=== PATIENT | female | born 1985 | race Caucasian/White ===

== ENCOUNTER 2017-08-23 14:20 | Emergency (ER) | END 2017-08-23 17:12 | disposition home or self-care (01) ==

== ENCOUNTER 2018-05-17 17:20 | Emergency (ER) | END 2018-05-17 21:04 | disposition home or self-care (01) ==

== ENCOUNTER 2018-08-16 07:23 | Emergency (ER) | payer MEDICAID ==
[~2018-08-16] VITALS: Ht 160 cm; Wt 65.6 kg
[~2018-08-16 07:23] MED LIST: CEPH-443 PO; IBUP-1542 PO; OSLT75C PO; PROM5SYR2 PO; SULF1TAB31 PO
[2018-08-16 07:24] VITALS: BP 140/86; PULSE 78; RESP 18; Ht 160 cm; Wt 65.6 kg
[2018-08-16] MEDS ORDERED: ONDANSETRON (ODT) 4 MG TAB ODT STA (07:37)
[2018-08-16] MEDS ORDERED: ACETAMINOPHEN 500 MG TAB PO STA (07:37)
[2018-08-16] MEDS ORDERED: ONDA4TAB14 PO (07:38)
[2018-08-16] MEDS ORDERED: DICY10CA40 PO (07:39)
--- NOTE | 2018-08-16 07:52 | ERD ---
ER Documentation Chief Complaint Chief Complaint DIARRHEA X 4 DAYS WITH NAUSEA AND CRAMPING HPI Patient is a 32-year-old female presents to the ER for concerns of nausea, vomiting and diarrhea. Patient states her last episode of vomiting was yesterday. Patient continues to feel nauseous. Patient is drinking Clare this morning without any additional episodes of vomiting. Patient states she has diffuse cramping throughout her abdomen. Patient states the pain comes and goes. Patient denies fevers or chills. Patient continued to report loose stools, nonbloody. Patient denies any recent travel. No sick contacts. Patient denies any chest pain, shortness of breath, neck pain, neck stiffness. Patient denies any recent antibiotic use. Last menstrual period 3 weeks ago. Patient denies . ROS All systems reviewed and are negative except as per history of present illness. Medications Home Meds Active Scripts Dicyclomine HCl (Dicyclomine HCl) 10 Mg Capsule, 10 MG PO TID PRN for ABDOMINAL CRAMPING, #20 CAP Prov:FREDIS TATUM PA-C 08/16/18 Ondansetron (Ondansetron Odt) 4 Mg Tab.rapdis, 4 MG PO Q6H PRN for NAUSEA AND/OR VOMITING, #10 TAB Prov:FREDIS TATUM PA-C 08/16/18 Ibuprofen* (Motrin*) 600 Mg Tab, 600 MG PO Q6, #30 TAB Prov:ELICIA HERNANDEZ 05/17/18 Sulfamethoxazole/Trimethoprim* (Bactrim Ds* Tablet) 1 Each Tablet, 1 TAB PO BID for 7 Days, TAB Prov:ELICIA HERNANDEZ 05/17/18 Cephalexin* (Keflex*) 500 Mg Capsule, 500 MG PO BID for 7 Days, CAP Prov:ELICIA HERNANDEZ 05/17/18 Promethazine HCl/Codeine (Prometh-Codein 6.25-10 mg/5 ml) 5 Ml Syrup, 5 ML PO TID PRN for COUGH, #120 ML Prov:IGOR LÓPEZ MD 08/23/17 Ibuprofen* (Ibuprofen*) 600 Mg Tablet, 600 MG PO Q8 for 5 Days, #15 TAB Prov:IGOR LÓPEZ MD 08/23/17 Oseltamivir Phosphate* (Tamiflu*) 75 Mg Capsule, 75 MG PO BID for 5 Days, CAP Prov:IGOR LÓPEZ MD 08/23/17 Allergies Allergies: Coded Allergies: No Known Allergy (Unverified , 08/16/18) PMhx/Soc History of Surgery: Yes ( X2) Anesthesia Reaction: No Hx Neurological Disorder: No Hx Respiratory Disorders: No Hx Cardiac Disorders: No Hx Psychiatric Problems: No Hx Miscellaneous Medical Probl: Yes (gestational diabetes) Hx Alcohol Use: No Hx Substance Use: No Hx Tobacco Use: No Smoking Status: Never smoker FmHx Family History: No diabetes Physical Exam Vitals Vital Signs Date Temp Pulse Resp B/P (MAP) Pulse Ox O2 O2 Flow FiO2 Time Delivery Rate 08/16/18 98.0 78 18 140/86 98 07:24 (104) Physical Exam GENERAL: Well-developed, well-nourished female. Appears in no acute distress. HEAD: Normocephalic, atraumatic. EYES: Pupils are equally reactive bilaterally. EOMs grossly intact. No conjunctival erythema. ENT: Moist mucous membranes. No uvula deviation. No kissing tonsils. NECK: Supple. No meningismus. Normal range of motion of the neck. LUNG: Clear to auscultation bilaterally. No rhonchi, wheezing, rales or coarse breath sounds. HEART: Regular rate and rhythm. No murmurs, rubs or gallops. ABDOMEN: Soft, nondistended. Nontender to palpation throughout the abdomen.. Positive bowel sounds in all four quadrants. No rebound tenderness, no guarding. (-) McBurney's point tenderness. No CVA tenderness. EXTREMITIES: Equal pulses bilaterally. No peripheral clubbing, cyanosis or edema. No unilateral leg swelling. NEUROLOGIC: Alert and oriented. Moving all four extremities without any difficulty. Normal speech. Steady gait. SKIN: Normal color. Warm and dry. No rashes or lesions. Results 24 hrs Current Medications Medications Dose Sig/David Start Time Status Last (Trade) Ordered Route PRN Stop Time Admin Dose Reason Admin Ondansetron 4 mg ONCE STAT 08/16/18 DC 08/16/18 HCl (Zofran ODT 07:37 07:42 Odt) 08/16/18 07:38 1,000 mg ONCE STAT 08/16/18 DC 08/16/18 Acetaminophen PO 07:37 07:42 (Tylenol 08/16/18 Tab) 07:38 Procedures/MDM MEDICAL DECISION MAKING: This is a 32-year-old female presents ER for concerns of nausea and diarrhea. Patient did have vomiting yesterday however that has not resolved.. Vital signs were reviewed. Patient is afebrile. Abdominal exam was benign. Patient had no peritoneal signs. Patient was able to tolerate fluids this morning. Low suspicion for patient requiring IV rehydration therapy at this time. Patient was given Zofran here in the ER for her nausea. Patient was also given Tylenol for her pain. Patient was advised on BRAT diet. Patient was advised to follow-up with her primary care physician in the next 2 days if her diarrhea persists she may need stool studies on outpatient basis. At this time, the patient presentation most consistent with viral syndrome. Differential diagnosis included was not limited to acute coronary syndrome, AAA, mesenteric ischemia, lower lobe pneumonia, DKA, bowel perforation, cholecystitis, choledocholithiasis, ascending cholangitis, hepatic abscess, pancreatitis, PUD, gastritis, GERD, splenic rupture, diverticulitis, UTI, pyelonephritis, nephrolithiasis, appendicitis, constipation, , ectopic , PID, ovarian torsion or tubo-ovarian abscess. Patient was nontoxic, non-opening prior to discharge. PRESCRIPTIONS: Bentyl, Zofran DISCHARGE: At this time, patient is stable for discharge and outpatient management. I have instructed the patient to follow-up with his/her primary care physician in 1-2 days. I have instructed the patient to promptly return to the ER at any time for any new or worsening symptoms including increased pain, nausea, vomiting, diarrhea, fever, weakness or LOC. The patient and/or family expressed understanding of and agreement with this plan. All questions were answered. Home care instructions were provided. Disclaimer: Inadvertent spelling and grammatical errors are likely due to EHR/dictation software use and do not reflect on the overall quality of patient care. Also, please note that the electronic time recorded on this note does not necessarily reflect the actual time of the patient encounter. Departure Diagnosis: Primary Impression: Nausea vomiting and diarrhea Additional Impression: Abdominal pain Abdominal location: generalized Qualified Codes: R10.84 - Generalized abdominal pain Condition: Stable Patient Instructions: Abdominal Pain, Vomiting And Diarrhea, Nonspecific (Adult) Additional Instructions: Call your primary care doctor TOMORROW for an appointment during the next 1-2 days.See the doctor sooner or return here if your condition worsens before your appointment time. FREDIS TATUM PA-C Aug 16, 2018 07:51
== END 2018-08-16 07:46 | disposition home or self-care (01) ==
LOC: FTE 07:23
DX: R11.2 Nausea with vomiting, unspecified (principal); R10.84 Generalized abdominal pain
CPT/HCPCS: Z7502; Z7610; 99283

== ENCOUNTER 2018-08-22 11:45 | Emergency (ER) | payer MEDICAID ==
[~2018-08-22] VITALS: Ht 165.1 cm; Wt 64.0 kg
[~2018-08-22 11:45] MED LIST changes: +DICY10CA40 PO; +ONDA4TAB14 PO
[2018-08-22 11:49] VITALS: Ht 165.1 cm; Wt 64.0 kg
[2018-08-22] MEDS ORDERED: LOPE2CAP PO (12:28)
--- NOTE | 2018-08-22 12:36 | ERD ---
ER Documentation Chief Complaint Chief Complaint Complains of abdominal ruelas and diarrhea x 3 days HPI 32-year-old female patient patient's history of diarrhea. States diarrhea is nonbloody. Denies any abdominal pain or . Denies vomiting, fevers. Denies past medical history. Denies allergies. Denies social. Denies medications. ROS All systems reviewed and are negative except as per history of present illness. Medications Home Meds Active Scripts Loperamide Hcl* (Imodium*) 2 Mg Capsule, 2 MG PO .AFTER EA LOOSE BM PRN for DIARRHEA, #20 TAB 2 tabs PO x 1 then 1 tab PO afer each loose BM. Max 8 tabs/day Prov:AUTUMN HIDALGO 08/22/18 Dicyclomine HCl (Dicyclomine HCl) 10 Mg Capsule, 10 MG PO TID PRN for ABDOMINAL CRAMPING, #20 CAP Prov:FREDIS TATUM PA-C 08/16/18 Ondansetron (Ondansetron Odt) 4 Mg Tab.rapdis, 4 MG PO Q6H PRN for NAUSEA AND/OR VOMITING, #10 TAB Prov:FREDIS TATUM PA-C 08/16/18 Ibuprofen* (Motrin*) 600 Mg Tab, 600 MG PO Q6, #30 TAB Prov:ELICIA HERNANDEZ 05/17/18 Sulfamethoxazole/Trimethoprim* (Bactrim Ds* Tablet) 1 Each Tablet, 1 TAB PO BID for 7 Days, TAB Prov:ELICIA HERNANDEZ 05/17/18 Cephalexin* (Keflex*) 500 Mg Capsule, 500 MG PO BID for 7 Days, CAP Prov:ELICIA HERNANDEZ 05/17/18 Promethazine HCl/Codeine (Prometh-Codein 6.25-10 mg/5 ml) 5 Ml Syrup, 5 ML PO TID PRN for COUGH, #120 ML Prov:IGOR LÓPEZ MD 08/23/17 Ibuprofen* (Ibuprofen*) 600 Mg Tablet, 600 MG PO Q8 for 5 Days, #15 TAB Prov:IGOR LÓPEZ MD 08/23/17 Oseltamivir Phosphate* (Tamiflu*) 75 Mg Capsule, 75 MG PO BID for 5 Days, CAP Prov:IGOR LÓPEZ MD 08/23/17 Allergies Allergies: Coded Allergies: No Known Allergy (Unverified , 08/22/18) PMhx/Soc History of Surgery: Yes ( X2) Anesthesia Reaction: No Hx Neurological Disorder: No Hx Respiratory Disorders: No Hx Cardiac Disorders: No Hx Psychiatric Problems: No Hx Miscellaneous Medical Probl: Yes (gestational diabetes) Hx Alcohol Use: Yes (social) Hx Substance Use: No Hx Tobacco Use: No Smoking Status: Never smoker FmHx Family History: No diabetes, No coronary disease, No other Physical Exam Vitals Vital Signs Date Temp Pulse Resp B/P (MAP) Pulse Ox O2 O2 Flow FiO2 Time Delivery Rate 08/22/18 98.0 96 20 119/80 98 11:49 (93) Physical Exam General: Well developed, well nourished. No acute distress. Heart: RR w/o murmur, rubs, or gallops. Lungs: Clear to auscultation bilaterally w/o wheezes, crackles, rhonchi. Symmetric rise and fall. Equal breath sounds. Abdomen: Soft, nontender, with no rigidity or guarding noted. No masses, lesions, or ecchymoses. Normoactive bowel sounds. No McBurney's point tender ness. Patient ambulatory. No tenderness to palpation in splenic area or splenomegaly. No CVA tenderness. Neg murphys. Neg psoas. Psych: Normal mood and affect. Results 24 hrs Laboratory Tests Test 08/22/18 12:20 POC Beta HCG, Qualitative NEGATIVE Procedures/MDM ER course: HCG neg MDM: 32-year-old female patient patient's history of diarrhea. States diarrhea is nonbloody. Denies any abdominal pain or . Denies vomiting, fevers. Low suspicion for invasive diarrhea based on patient history and physical exam. Have low suspicion for appendicitis. Patient given Rx for immodium and work note to return in 2 days. Patient discharged with strict ER precautions. Patient advised to follow up with PMD. All questions answered at discharge. Departure Diagnosis: Primary Impression: Diarrhea Diarrhea type: functional diarrhea Qualified Codes: K59.1 - Functional diarrhea Condition: Stable Patient Instructions: Treating Diarrhea Referrals: COMM[facility]ITY CLINICS YOU HAVE RECEIVED A MEDICAL SCREENING EXAM AND THE RESULTS INDICATE THAT YOU DO NOT HAVE A CONDITION THAT REQUIRES URGENT TREATMENT IN THE EMERGENCY DEPARTMENT. FURTHER EVALUATION AND TREATMENT OF YOUR CONDITION CAN WAIT UNTIL YOU ARE SEEN IN YOUR DOCTORS OFFICE WITHIN THE NEXT 1-2 DAYS. IT IS YOUR RESPONSIBILITY TO M ABRAHAM AN APPOINTMENT FOR FOLOW-UP CARE. IF YOU HAVE A PRIMARY DOCTOR --you should call your primary doctor and schedule an appointment IF YOU DO NOT HAVE A PRIMARY DOCTOR YOU CAN CALL OUR PHYSICIAN REFERRAL HOTLINE AT IF YOU CAN NOT AFFORD TO SEE A PHYSICIAN YOU CAN CHOSE FROM THE FOLLOWING [facility] CLINICS [facility] [address] [facility] [address] [facility] [address] [facility] [address] [facility] [address] [facility]. [facility] [address] Additional Instructions: FOLLOW UP WITH YOUR PRIMARY CARE PHYSICIAN TOMORROW.Return to this facility if you are not improving as expected. AUTUMN HIDALGO Aug 22, 2018 12:36
[2018-08-22 13:04] VITALS: BP 112/73; PULSE 87; RESP 20
== END 2018-08-22 13:08 | disposition home or self-care (01) ==
LOC: FTE 11:45
DX: K59.1 Functional diarrhea (principal)
CPT/HCPCS: 81025; Z7502; 99282

== ENCOUNTER 2018-10-30 09:10 | Emergency (ER) | payer MEDICAID ==
[~2018-10-30] VITALS: Ht 154.9 cm; Wt 63.7 kg
[~2018-10-30 09:10] MED LIST changes: +LOPE2CAP PO; +OSEL75CA23 PO; -OSLT75C PO
[2018-10-30 09:16] VITALS: BP 125/90; PULSE 84; RESP 18; Ht 154.9 cm; Wt 63.7 kg
[2018-10-30] MEDS ORDERED: CEPH-443 PO (10:37)
[2018-10-30] MEDS ORDERED: SULF1TAB31 PO (10:37)
--- NOTE | 2018-10-30 10:44 | ERD ---
ER Documentation Chief Complaint Chief Complaint diarrhea x 3 days and blisters to genital area HPI 32-year-old female presents for genital area rash and diarrhea times 3 days. Patient has been taking Imodium for diarrhea and is improving if this is not really concerned about the diarrhea at this point. She has been concerned about the genital rash. She states that she has painful bumps. She states that she had prior similar symptoms which was diagnosed with an abscess. She was given antibiotics in the past with relief of symptoms. She denied denies abdominal p ain, denies fevers or chills. ROS All systems reviewed and are negative except as per history of present illness. Medications Home Meds Active Scripts Sulfamethoxazole/Trimethoprim* (Bactrim Ds* Tablet) 1 Each Tablet, 1 TAB PO BID for skin infection for 7 Days, #14 TAB Prov:ALYSSA LOPEZ DO 10/30/18 Cephalexin* (Keflex*) 500 Mg Capsule, 500 MG PO TID for skin infection for 7 Days, #21 CAP Prov:ALYSSA LOPEZ DO 10/30/18 Loperamide Hcl* (Imodium*) 2 Mg Capsule, 2 MG PO .AFTER EA LOOSE BM PRN for DIARRHEA, #20 TAB 2 tabs PO x 1 then 1 tab PO afer each loose BM. Max 8 tabs/day Prov:AUTUMN HIDALGO 08/22/18 Dicyclomine HCl (Dicyclomine HCl) 10 Mg Capsule, 10 MG PO TID PRN for ABDOMINAL CRAMPING, #20 CAP Prov:FREDIS TATUM PA-C 08/16/18 Ondansetron (Ondansetron Odt) 4 Mg Tab.rapdis, 4 MG PO Q6H PRN for NAUSEA AND/OR VOMITING, #10 TAB Prov:FREDIS TATUM PA-C 08/16/18 Ibuprofen* (Motrin*) 600 Mg Tab, 600 MG PO Q6, #30 TAB Prov:ELICIA HERNANDEZ 05/17/18 Sulfamethoxazole/Trimethoprim* (Bactrim Ds* Tablet) 1 Each Tablet, 1 TAB PO BID for 7 Days, TAB Prov:ELICIA HERNANDEZ 05/17/18 Cephalexin* (Keflex*) 500 Mg Capsule, 500 MG PO BID for 7 Days, CAP Prov:ELICIA HERNANDEZ 05/17/18 Promethazine HCl/Codeine (Prometh-Codein 6.25-10 mg/5 ml) 5 Ml Syrup, 5 ML PO TID PRN for COUGH, #120 ML Prov:IGOR LÓPEZ MD 08/23/17 Ibuprofen* (Ibuprofen*) 600 Mg Tablet, 600 MG PO Q8 for 5 Days, #15 TAB Prov:IGOR LÓPEZ MD 08/23/17 Oseltamivir Phosphate* (Tamiflu*) 75 Mg Capsule, 75 MG PO BID for 5 Days, CAP Prov:IGOR LÓPEZ MD 08/23/17 Allergies Allergies: Coded Allergies: No Known Allergy (Unverified , 08/22/18) PMhx/Soc History of Surgery: Yes ( X 3) Anesthesia Reaction: No Hx Neurological Disorder: No Hx Respiratory Disorders: No Hx Cardiac Disorders: No Hx Psychiatric Problems: No Hx Miscellaneous Medical Probl: Yes (gestational diabetes) Hx Alcohol Use: Yes (social) Hx Substance Use: No Hx Tobacco Use: No Smoking Status: Never smoker Physical Exam Vitals Vital Signs Date Temp Pulse Resp B/P (MAP) Pulse Ox O2 O2 Flow FiO2 Time Delivery Rate 10/30/18 97.4 84 18 125/90 100 09:16 (102) Physical Exam Const: No acute distress Resp: Clear to auscultation bilaterally Cardio: Regular rate and rhythm, no murmurs Abd: Soft, non tender, non distended. Normal bowel sounds Skin: Vaginal exam with myself at bedside, patient has 3 small areas of lesion, elevated, erythematous with increased warmth Back: No midline or flank tenderness Ext: No cyanosis, or edema Neur: Awake and alert Psych: Normal Mood and Affect Procedures/MDM Medical Decision Making: Differential diagnosis includes but not limited to HSV, cellulitis, abscess Patient appeared well on physical exam. Exam done with the staff at bedside shows areas of infection bacterial co nsistent with an abscess. The abscess is too small to be drained. Patient be given a trial of antibiotics which has helped in the past Prescription(s): Patient given prescription for Bactrim and Keflex. Patient advised to follow up with PCP in 1-2 days. Patient advised to return to ED for new or worsening symptoms. Patient stable on discharge from the ED. Disclaimer: Inadvertent spelling and grammatical errors are likely due to EHR/dictation software use and do not reflect on the overall quality of patient care. Also, please note that the electronic time recorded on this note does not necessarily reflect the actual time of the patient encounter. Departure Diagnosis: Primary Impression: Abscess Condition: Fair Patient Instructions: Folliculitis Referrals: [facility] YOU HAVE RECEIVED A MEDICAL SCREENING EXAM AND THE RESULTS INDICATE THAT YOU DO NOT HAVE A CONDITION THAT REQUIRES URGENT TREATMENT IN THE EMERGENCY DEPARTMENT. FURTHER EVALUATION AND TREATMENT OF YOUR CONDITION CAN WAIT UNTIL YOU ARE SEEN IN YOUR DOCTORS OFFICE WITHIN THE NEXT 1-2 DAYS. IT IS YOUR RESPONSIBILITY TO MAKE AN APPOINTMENT FOR FOLOW-UP CARE. IF YOU HAVE A PRIMARY DOCTOR --you should call your primary doctor and schedule an appointment IF YOU DO NOT HAVE A PRIMARY DOCTOR YOU CAN CALL OUR PHYSICIAN REFERRAL HOTLINE AT IF YOU CAN NOT AFFORD TO SEE A PHYSICIAN YOU CAN CHOSE FROM THE FOLLOWING [facility] CLINICS [facility] [address] [facility] [address] [facility] [address] [facility] [address] [facility] [address] [facility] [facility]. [address] Additional Instructions: Llame al doctor MAANA y harvey anthony KIARA PARA DENTRO DE 1-2 MUNOZ.Dgale a la secretaria que nosotros le instruimos hacer esta kiara.Avise o llame si botello condicin se empeora antes de la kiara. Regresa aqui si peor o no mejor. ALYSSA LOPEZ DO Oct 30, 2018 10:44
== END 2018-10-30 10:53 | disposition home or self-care (01) ==
LOC: FTE 09:10
DX: N76.0 Acute vaginitis (principal)
CPT/HCPCS: 99283

== ENCOUNTER 2018-12-19 04:25 | Emergency (ER) | payer MEDICAID ==
[~2018-12-19] VITALS: Ht 154.9 cm; Wt 65.6 kg
[2018-12-19 04:48] VITALS: Ht 154.9 cm; Wt 65.6 kg
[2018-12-19] MEDS ORDERED: ACETAMINOPHEN 500 MG TAB PO STA (07:49)
[2018-12-19] MEDS ORDERED: LIDOCAINE 1% (MDV) 20 ML INJ SC ONE (08:00)
[2018-12-19] MEDS ORDERED: CEFTRIAXONE 1 GM INJ IM ONE (08:00)
[2018-12-19] MEDS ORDERED: HYDROCODONE/APAP (10/325) TAB PO ONE (10:30)
[2018-12-19] MEDS ORDERED: ONDANSETRON (ODT) 4 MG TAB ODT STA (10:31)
[2018-12-19] MEDS ORDERED: TRAM50TA2 PO (10:33)
[2018-12-19] MEDS ORDERED: NAPR-985 PO (10:33)
[2018-12-19] MEDS ORDERED: SULF1TAB31 PO (10:33)
[2018-12-19] MEDS ORDERED: CEPH500C PO (10:33)
[2018-12-19] MEDS ORDERED: ACET500C5 PO (10:33)
[2018-12-19 10:51] VITALS: BP 111/82; PULSE 87; RESP 17
[2018-12-19] MEDS ORDERED: TRIMETHOPRIM/SULFAMETHOX (DS) TAB PO ONE (11:00)
--- NOTE | 2018-12-19 11:34 | ERD ---
ER Documentation Chief Complaint Chief Complaint partially/spontaneously draining sore abscess on RUQ ab area;Tylenol@1900 HPI History of Present Illness: 32-year-old female with no past medical history coming in today with complaint of abscess on right upper quadrant. Significant other is present with patient during ER visit. Reporting of being present for 1 week, with intermittent mild purulent drainage. Patient is reporting increase in size over the past 7 days. Associated symptoms include fatigue, chills. At home pharmacological/nonpharmacological treatment for symptoms: Acetaminophen at 1900 last night Denies social concerns; Denies recent foreign travel ROS All systems reviewed and are negative except as per history of present illness. Medications Home Meds Active Scripts Tramadol HCl (Tramadol HCl) 50 Mg Tablet, 50 MG PO Q8, #6 TAB Prov:CHRISS COLLAZO V HYBRID CORN BREEDER 12/19/18 Naproxen* (Naprosyn*) 500 Mg Tablet, 500 MG PO BID PRN for PAIN AND/OR INFLAMMATION, #30 TAB Prov:CHRISS COLLAZO V HYBRID CORN BREEDER 12/19/18 Acetaminophen* (Tylophen*) 500 Mg Capsule, 2 CAP PO Q8H PRN for PAIN AND OR ELEVATED TEMP, #20 CAP Prov:CHRISS COLLAZO V HYBRID CORN BREEDER 12/19/18 Sulfamethoxazole/Trimethoprim* (Bactrim Ds* Tablet) 1 Each Tablet, 1 TAB PO BID for ABSCESS/SKIN INFECTION for 7 Days, #14 TAB Prov:CHRISS COLLAZO V HYBRID CORN BREEDER 12/19/18 Cephalexin* (Cephalexin*) 500 Mg Capsule, 500 MG PO Q6 for ABSCESS/SKIN INFECTION for 7 Days, #28 CAP Prov:CHRISS COLLAZO V HYBRID CORN BREEDER 12/19/18 Sulfamethoxazole/Trimethoprim* (Bactrim Ds* Tablet) 1 Each Tablet, 1 TAB PO BID for skin infection for 7 Days, #14 TAB Prov:ALYSSA LOPEZ DO 10/30/18 Cephalexin* (Keflex*) 500 Mg Capsule, 500 MG PO TID for skin infection for 7 Days, #21 CAP Prov:ALYSSA LOPEZ DO 10/30/18 Loperamide Hcl* (Imodium*) 2 Mg Capsule, 2 MG PO .AFTER EA LOOSE BM PRN for DIARRHEA, #20 TAB 2 tabs PO x 1 then 1 tab PO afer each loose BM. Max 8 tabs/day Prov:AUTUMN HIDALGO 08/22/18 Dicyclomine HCl (Dicyclomine HCl) 10 Mg Capsule, 10 MG PO TID PRN for ABDOMINAL CRAMPING, #20 CAP Prov:FREDIS TATUM PA-C 08/16/18 Ondansetron (Ondansetron Odt) 4 Mg Tab.rapdis, 4 MG PO Q6H PRN for NAUSEA AND/OR VOMITING, #10 TAB Prov:FREDIS TATUM PA-C 08/16/18 Ibuprofen* (Motrin*) 600 Mg Tab, 600 MG PO Q6, #30 TAB Prov:ELICIA HERNANDEZ 05/17/18 Sulfamethoxazole/Trimethoprim* (Bactrim Ds* Tablet) 1 Each Tablet, 1 TAB PO BID for 7 Days, TAB Prov:ELICIA HERNANDEZ 05/17/18 Cephalexin* (Keflex*) 500 Mg Capsule, 500 MG PO BID for 7 Days, CAP Prov:ELICIA HERNANDEZ 05/17/18 Promethazine HCl/Codeine (Prometh-Codein 6.25-10 mg/5 ml) 5 Ml Syrup, 5 ML PO TID PRN for COUGH, #120 ML Prov:IGOR LÓPEZ MD 08/23/17 Ibuprofen* (Ibuprofen*) 600 Mg Tablet, 600 MG PO Q8 for 5 Days, #15 TAB Prov:IGOR LÓPEZ MD 08/23/17 Oseltamivir Phosphate* (Tamiflu*) 75 Mg Capsule, 75 MG PO BID for 5 Days, CAP Prov:IGOR LÓPEZ MD 08/23/17 Allergies Allergies: Coded Allergies: No Known Allergy (Unverified , 08/22/18) PMhx/Soc History of Surgery: Yes ( X 3) Anesthesia Reaction: No Hx Neurological Disorder: No Hx Respiratory Disorders: No Hx Cardiac Disorders: No Hx Psychiatric Problems: No Hx Miscellaneous Medical Probl: Yes (gestational diabetes) Hx Alcohol Use: Yes (social) Hx Substance Use: No Hx Tobacco Use: No Smoking Status: Never smoker FmHx Family History: diabetes, coronary disease Physical Exam Vitals Vital Signs Date Temp Pulse Resp B/P (MAP) Pulse Ox O2 O2 Flow FiO2 Time Delivery Rate 12/19/18 97.8 87 17 111/82 99 Room Air 10:51 (92) 12/19/18 100.1 94 20 113/77 99 04:48 (89) Physical Exam Const: No acute distress Head: Atraumatic Eyes: Normal Conjunctiva ENT: Normal External Ears, Nose and Mouth. Neck: Full range of motion. No meningismus. Resp: Clear to auscultation bilaterally Cardio: Regular rate and rhythm, no murmurs Abd: Soft, non tender, non distended. Normal bowel sounds Skin: No petechiae or rashes. Abscess noted to right upper quadrant of abdomen, 10.5 cm of induration, 6 cm of fluctuance, no streaking, no surrounding cellulitis Back: No midline or flank tenderness Ext: No cyanosis, or edema Neur: Awake and alert Psych: Normal Mood and Affect Results 24 hrs Current Medications Medications Dose Sig/David Start Time Status Last (Trade) Ordered Route PRN Stop Time Admin Dose Reason Admin Lidocaine 20 ml ONCE ONCE 12/19/18 DC (Xylocaine SC 08:00 1% (Mdv) 20 12/19/18 08:01 ml) 1,000 mg ONCE STAT 12/19/18 DC 12/19/18 Acetaminophen PO 07:49 08:16 (Tylenol 12/19/18 07:51 Tab) Ceftriaxone 1 gm ONCE ONCE 12/19/18 DC 12/19/18 Sodium IM 08:00 08:15 (Rocephin) 12/19/18 08:01 1 tab ONCE ONCE 12/19/18 DC Acetaminophen PO 10:30 / 12/19/18 10:31 Hydrocodone Bitart ([place] (10/325)) 1 tab ONCE ONCE 12/19/18 DC 12/19/18 Trimethoprim/ PO 11:00 10:44 12/19/18 11:00 Sulfamethoxaz ole (Bactrim (Ds)) Ondansetron 4 mg ONCE STAT 12/19/18 DC 12/19/18 HCl (Zofran ODT 10:31 10:44 Odt) 12/19/18 10:32 Procedures/MDM ED course includes a thorough examination and history. Medications: Ceftriaxone, Bactrim, acetaminophen Imaging:-- Labs: -- Low suspicion for life-threatening medical emergency. Low suspicion for infectious emergency that requires hospitalization or surgical intervention, patient febrile but no signs of sepsis. Otherwise healthy patient presenting with constellation of symptoms likely representing abscess as characterized by history, physical exam findings. Abscess Incision and Drainage with irrigation by me: Location: Right upper quadrant of abdomen Anesthesia: Local 1% Lidocaine Technique: Irrigated. Disrupted loculations w/ instrumentation Packing: Iodoform Complications: None 48 hour wound check. Scar minimization instructions given. No respiratory distress, otherwise relatively well appearing and nontoxic. Patient hemodynamically stable at time of discharge. Patient with pain but will not take [place] due to driving, will give prescription for tramadol. Patient and significant other verbalized understanding of plan of care and removing of pac more within 2 days. Patient educated on diagnoses, prescriptions, follow-up care, return precautions. Strict return precautions given for worsening condition; questions answered discharge. Disposition for discharge with followup in 2 days with PCP/clinic. Departure Diagnosis: Primary Impression: Abscess Condition: Stable Patient Instructions: Abscess, Incision And Drainage Referrals: [facility] Usted se samano hecho un examen mdico de control que le indica que no est en anthony condicin que requiera tratamiento urgente en el Departamento de Emergencia. Un estudio ms profundo y el tratamiento de foss condicin pueden esperar sin ningn riesgo hasta que usted sea atendida/o en el consultorio de foss mdico o anthony clnica. Es responsabilidad suya arreglar anthony joseph para el seguimiento del gab. MANEJO DE CONDICIONES NO URGENTES EN EL FUTURO 1) Si usted tiene un mdico de atencin primaria: Usted debera llamar a foss mdico de atencin primaria antes de venir al departamento de emergencia. Despus de las horas de consultorio, foss doctor o foss asociado/a est disponible por telfono. El mdico o enfermero de lexie en el servicio telefnico puede asesorarle por ginny medio para atender el problema, o gab contrario se puede programar anthony joseph. 2) Si usted no tiene un mdico de atencin primaria: Llame al mdico o clnica de referencia que aparece abajo toby las horas de consultorio para hacer anthony joseph para que le vean. CLINICAS: [facility] [phone] [facility] [phone] [facility] [phone] [facility] [phone] [place] [phone] [facility]. [phone] [address] [facility]. [facility] () Usted se samano hecho un examen mdico de control que le indica que no est en anthony condicin que requiera tratamiento urgente en el Departamento de Emergencia. Un estudio ms profundo y el tratamiento de foss condicin pueden esperar sin ningn riesgo hasta que usted sea atendida/o en el consultorio de foss mdico o anthony clnica. Es responsabilidad suya arreglar anthony joseph para el seguimiento del gab. MANEJO DE CONDICIONES NO URGENTES EN EL FUTURO 1) Si usted tiene un mdico de atencin primaria: Usted debera llamar a foss mdico de atencin primaria antes de venir al departamento de emergencia. Despus de las horas de consultorio, foss doctor o foss asociado/a est disponible por telfono. El mdico o enfermero de lexie en el servicio telefnico puede asesorarle por ginny medio para atender el problema, o gab contrario se puede programar anthony joseph. 2) Si usted no tiene un mdico de atencin primaria: Llame al mdico o condado institucions de referencia que aparece abajo toby las horas de consultorio para hacer anthony joseph para que le vean. SI USTED NO PUEDE PAGAR PARA MARIANA UN MEDICO puede ir a: [facility] [address] [place] [address] [facility] [address] [place] [address] [facility] [address] [place] [address] [facility] [address] [place], [place] [id number] Additional Instructions: Muchas jeana por permitirnos participar en foss cuidado. Foss beryl y seguridad es nuestra principal prioridad en [facility]. Es importante leer todas las instrucciones de angeles y la educacin que se proporcionan en foss paquete de angeles. * Es muy importante quitar el empaque / gasa de la infeccin del absceso / piel. Crucible debe hacerse en la clnica o con foss mdico de atencin primaria; Si no puede verlos, regrese al departamento de emergencias * Llame a foss mdico de atencin primaria MAANA para anthony joseph toby los prximos 2 a 4 goodman y lleve toda la informacin y los medicamentos recetados. Tenga las prescripciones llenas y siga exactamente las instrucciones de la etiqueta. -Keflex y Bactrim son 2 antibiticos separados; tome irais medicamento todos los goodman luis se indica en foss receta. Debe completar todo el curso de tratamiento que figura en foss receta. Crucible es muy importante porque se necesitan varios goodman para eliminar las bacterias que causan la infeccin. -Naproxeno es un medicamento antiinflamatorio / para el dolor; tome irais medicamento diariamente segn lo prescrito para la prxima semana para ayudar con la hinchazn / inflamacin / dolor. -Acetaminofeno es un medicamento para el dolor y / o fiebre. [place] irais medicamento segn sea necesario para el dolor leve a moderado. Irais medicamento no causar somnolencia. -Luis el tramadol es un analgsico opiceo; tome irais medicamento segn sea necesario para el dolor moderado a intenso. No se opera maquinaria pesada mientras se janes irais medicamento. Puede causar somnolencia.- Si los sntomas empeoran y foss proveedor no est disponible, regrese inmediatamente al Departamento de emergencias --- Translation using [employer] translate services. Thank you very much for allowing us to participate in your care. Your health and safety is our top priority at [facility]. It is important to read all discharge instructions and education provided in your discharge packet. *It is very important to remove the packing/gauze from abscess/skin infection. This must be done at the clinic or your primary care doctor; if you are unable to see them, return to emergency department* Call your primary care doctor TOMORROW for an appointment during the next 2-4 days and bring all the information and medications prescribed. Hav as e prescriptions filled and follow precisely the directions on the label. -Keflex and Bactrim are 2 separate antibiotics; take this medication every day as listed on your prescription. You must complete the entire course of treatment that is listed on your prescription this is very important because it takes a certain number of days to kill the bacteria that is causing the infe ction. -Naproxen is a anti-inflammatory/pain medication; take this medication daily as prescribed for the next week to help with swelling/inflammation/pain. -Acetaminophen Is a medication for pain and/or fever. Take this medication as needed for mild to moderate pain. This medication will not cause drowsiness. -As tramadol IS AN opiate pain medication; take this medication as needed for moderate to severe pain. No operating of heavy machinery while taking this medication. It may cause drowsiness.- If the symptoms get worse and your provider is unavailable, return to the Emergency Department immediately. CHRISS COLLAZO NP Dec 19, 2018 11:34
== END 2018-12-19 10:52 | disposition home or self-care (01) ==
LOC: FTE 04:25
DX: L02.211 Cutaneous abscess of abdominal wall (principal)
CPT/HCPCS: 10060; J0696; Z7610; 96372

== ENCOUNTER 2018-12-21 06:49 | Emergency (ER) | payer MEDICAID ==
[~2018-12-21] VITALS: Ht 154.9 cm; Wt 64.6 kg
[~2018-12-21 06:49] MED LIST changes: +ACET500C5 PO; +CEPH500C PO; +NAPR-985 PO; +TRAM50TA2 PO
[2018-12-21 06:53] VITALS: BP 127/78; PULSE 96; RESP 18; Ht 154.9 cm; Wt 64.6 kg
--- NOTE | 2018-12-21 15:44 | ERD ---
ER Documentation Chief Complaint Chief Complaint pt here for wound check HPI 32-year-old female presenting for wound check. Patient had an abscess to her right abdomen. Patient is taking her antibiotics and denies any fevers. Denies other medical problems. NKDA. Surgical history denies. Social history denies ROS All systems reviewed and are negative except as per history of present illness. Medications Home Meds Active Scripts Tramadol HCl (Tramadol HCl) 50 Mg Tablet, 50 MG PO Q8, #6 TAB Prov:CHRISS COLLAZO V SHUTTLER CAR 12/19/18 Naproxen* (Naprosyn*) 500 Mg Tablet, 500 MG PO BID PRN for PAIN AND/OR INFLAMMATION, #30 TAB Prov:CHRISS COLLAZO V SHUTTLER CAR 12/19/18 Acetaminophen* (Tylophen*) 500 Mg Capsule, 2 CAP PO Q8H PRN for PAIN AND OR ELEVATED TEMP, #20 CAP Prov:CHRISS COLLAZO V SHUTTLER CAR 12/19/18 Sulfamethoxazole/Trimethoprim* (Bactrim Ds* Tablet) 1 Each Tablet, 1 TAB PO BID for ABSCESS/SKIN INFECTION for 7 Days, #14 TAB Prov:CHRISS COLLAZO V SHUTTLER CAR 12/19/18 Cephalexin* (Cephalexin*) 500 Mg Capsule, 500 MG PO Q6 for ABSCESS/SKIN INFECTION for 7 Days, #28 CAP Prov:CHRISS COLLAZO V SHUTTLER CAR 12/19/18 Sulfamethoxazole/Trimethoprim* (Bactrim Ds* Tablet) 1 Each Tablet, 1 TAB PO BID for skin infection for 7 Days, #14 TAB Prov:ALYSSA LOPEZ DO 10/30/18 Cephalexin* (Keflex*) 500 Mg Capsule, 500 MG PO TID for skin infection for 7 Days, #21 CAP Prov:ALYSSA LOPEZ DO 10/30/18 Loperamide Hcl* (Imodium*) 2 Mg Capsule, 2 MG PO .AFTER EA LOOSE BM PRN for DIARRHEA, #20 TAB 2 tabs PO x 1 then 1 tab PO afer each loose BM. Max 8 tabs/day Prov:AUTUMN HIDALGO 08/22/18 Dicyclomine HCl (Dicyclomine HCl) 10 Mg Capsule, 10 MG PO TID PRN for ABDOMINAL CRAMPING, #20 CAP Prov:FREDIS TATUM PA-C 08/16/18 Ondansetron (Ondansetron Odt) 4 Mg Tab.rapdis, 4 MG PO Q6H PRN for NAUSEA AND/OR VOMITING, #10 TAB Prov:FREDIS TATUM PA-C 08/16/18 Ibuprofen* (Motrin*) 600 Mg Tab, 600 MG PO Q6, #30 TAB Prov:ELICIA HERNANDEZ Roly 05/17/18 Sulfamethoxazole/Trimethoprim* (Bactrim Ds* Tablet) 1 Each Tablet, 1 TAB PO BID for 7 Days, TAB Prov:TALA HERNANDEZLEROY Dunham 05/17/18 Cephalexin* (Keflex*) 500 Mg Capsule, 500 MG PO BID for 7 Days, CAP Prov:TALA HERNANDEZLEROY Dunham 05/17/18 Promethazine HCl/Codeine (Prometh-Codein 6.25-10 mg/5 ml) 5 Ml Syrup, 5 ML PO TID PRN for COUGH, #120 ML Prov:IGOR LÓPEZ MD 08/23/17 Ibuprofen* (Ibuprofen*) 600 Mg Tablet, 600 MG PO Q8 for 5 Days, #15 TAB Prov:IGOR LÓPEZ MD 08/23/17 Oseltamivir Phosphate* (Tamiflu*) 75 Mg Capsule, 75 MG PO BID for 5 Days, CAP Prov:IGOR LÓPEZ MD 08/23/17 Allergies Allergies: Coded Allergies: No Known Allergy (Unverified , 08/22/18) PMhx/Soc History of Surgery: Yes ( X 3) Anesthesia Reaction: No Hx Neurological Disorder: No Hx Respiratory Disorders: No Hx Cardiac Disorders: No Hx Psychiatric Problems: No Hx Miscellaneous Medical Probl: Yes (gestational diabetes) Hx Alcohol Use: Yes (social) Hx Substance Use: No Hx Tobacco Use: No Smoking Status: Never smoker FmHx Family History: No diabetes, No coronary disease, No other Physical Exam Vitals Vital Signs Date Temp Pulse Resp B/P (MAP) Pulse Ox O2 O2 Flow FiO2 Time Delivery Rate 12/21/18 98.6 96 18 127/78 100 06:53 (94) Physical Exam GENERAL: The patient is well-appearing, well-nourished, in no acute distress CHEST: Clear to auscultation bilaterally. There are no rales, wheezes or rhonchi. HEART: Regular rate and rhythm. No murmurs, clicks, rubs or gallops. ABDOMEN:Soft, nontender and nondistended. Good bowel sounds. No rebound or guarding. No gross peritonitis. No gross organomegaly or masses. No peritoneal pain. SKIN: Previous incision and drainage site noted to the right abdomen. Packing in place. No surrounding erythema or fluctuance. No lymphatic streaking. Procedures/MDM ER course: Packing removed. Area cleaned and new packing placed. Bandage applied. Patient is recommended to return in 2 days for wound care. MDM: 32-year-old female presenting with abscess. Patient is recommended to return in 2 days for continued wound care. I have low suspicion for deep tracking infection. I have low suspicion for acute abdominal emergency or abscess in the abdominal wall. Patient is discharged with strict ER precautions and told to follow-up with primary care within 1 to 2 days for close evaluation. All questions answered at discharge. Departure Diagnosis: Primary Impression: Encounter for wound re-check Condition: Stable Patient Instructions: Wound Packing Referrals: [facility] YOU HAVE RECEIVED A MEDICAL SCREENING EXAM AND THE RESULTS INDICATE THAT YOU DO NOT HAVE A CONDITION THAT REQUIRES URGENT TREATMENT IN THE EMERGENCY DEPARTMENT. FURTHER EVALUATION AND TREATMENT OF YOUR CONDITION CAN WAIT UNTIL YOU ARE SEEN IN YOUR DOCTORS OFFICE WITHIN THE NEXT 1-2 DAYS. IT IS YOUR RESPONSIBILITY TO MAKE AN APPOINTMENT FOR FOLOW-UP CARE. IF YOU HAVE A PRIMARY DOCTOR --you should call your primary doctor and schedule an appointment IF YOU DO NOT HAVE A PRIMARY DOCTOR YOU CAN CALL OUR PHYSICIAN REFERRAL HOTLINE AT IF YOU CAN NOT AFFORD TO SEE A PHYSICIAN YOU CAN CHOSE FROM THE FOLLOWING [facility] [address] [facility] [address] [facility] [facility] [address] [facility] [address] [facility] [address] [facility]. [facility]. [address] Additional Instructions: FOLLOW UP WITH YOUR PRIMARY CARE PHYSICIAN TOMORROW.Return to this facility if you are not improving as expected. NIKI CARROLL PA-C Dec 21, 2018 15:44
== END 2018-12-21 07:27 | disposition home or self-care (01) ==
LOC: FTE 06:49
DX: Z48.01 Encounter for change or removal of surgical wound dressing (principal)
CPT/HCPCS: 99281

== ENCOUNTER 2018-12-23 05:50 | Emergency (ER) | payer MEDICAID ==
[~2018-12-23] VITALS: Wt 65.0 kg
[2018-12-23 05:52] VITALS: BP 124/74; PULSE 77; RESP 18
--- NOTE | 2018-12-23 07:12 | ERD ---
ER Documentation Chief Complaint Chief Complaint RECHECK ABSCESS ON FLANK; DRAINED 10 DAYS AGO HPI 32-year-old female presents for reevaluation of abscess to right flank. She presented to ED 4 days ago for incision and drainage of abscess with packing placed. Patient was placed on Bactrim, Keflex, anti-inflammatory medication and pain medication. Patient notes compliance with the use of medications. Patient presented 2 days ago for removal of packing, abscess repacked and presents for removal of packing today. Patient notes significant improvement in swelling and pain status post I&D. Denies fever, chills, sweats, nausea, or vomiting. ROS All systems reviewed and are negative except as per history of present illness. Medications Home Meds Active Scripts Tramadol HCl (Tramadol HCl) 50 Mg Tablet, 50 MG PO Q8, #6 TAB Prov:CHRISS COLLAZO V WIND ENERGY PROJECT MANAGER 12/19/18 Naproxen* (Naprosyn*) 500 Mg Tablet, 500 MG PO BID PRN for PAIN AND/OR INFLAMMATION, #30 TAB Prov:CHRISS COLLAZO V WIND ENERGY PROJECT MANAGER 12/19/18 Acetaminophen* (Tylophen*) 500 Mg Capsule, 2 CAP PO Q8H PRN for PAIN AND OR ELEVATED TEMP, #20 CAP Prov:CHRISS COLLAZO V WIND ENERGY PROJECT MANAGER 12/19/18 Sulfamethoxazole/Trimethoprim* (Bactrim Ds* Tablet) 1 Each Tablet, 1 TAB PO BID for ABSCESS/SKIN INFECTION for 7 Days, #14 TAB Prov:CHRISS COLLAZO V WIND ENERGY PROJECT MANAGER 12/19/18 Cephalexin* (Cephalexin*) 500 Mg Capsule, 500 MG PO Q6 for ABSCESS/SKIN INFECTION for 7 Days, #28 CAP Prov:CHRISS COLLAZO V WIND ENERGY PROJECT MANAGER 12/19/18 Sulfamethoxazole/Trimethoprim* (Bactrim Ds* Tablet) 1 Each Tablet, 1 TAB PO BID for skin infection for 7 Days, #14 TAB Prov:ALYSSA LOPEZ DO 10/30/18 Cephalexin* (Keflex*) 500 Mg Capsule, 500 MG PO TID for skin infection for 7 Days, #21 CAP Prov:ALYSSA LOPEZ DO 10/30/18 Loperamide Hcl* (Imodium*) 2 Mg Capsule, 2 MG PO .AFTER EA LOOSE BM PRN for DIARRHEA, #20 TAB 2 tabs PO x 1 then 1 tab PO afer each loose BM. Max 8 tabs/day Prov:AUTUMN HIDALGO 08/22/18 Dicyclomine HCl (Dicyclomine HCl) 10 Mg Capsule, 10 MG PO TID PRN for ABDOMINAL CRAMPING, #20 CAP Prov:FREDIS TATUM PA-C 08/16/18 Ondansetron (Ondansetron Odt) 4 Mg Tab.rapdis, 4 MG PO Q6H PRN for NAUSEA AND/OR VOMITING, #10 TAB Prov:FREDIS TATUM PA-C 08/16/18 Ibuprofen* (Motrin*) 600 Mg Tab, 600 MG PO Q6, #30 TAB Prov:ELICIA HERNANDEZ 05/17/18 Sulfamethoxazole/Trimethoprim* (Bactrim Ds* Tablet) 1 Each Tablet, 1 TAB PO BID for 7 Days, TAB Prov:ELICIA HERNANDEZ 05/17/18 Cephalexin* (Keflex*) 500 Mg Capsule, 500 MG PO BID for 7 Days, CAP Prov:ELICIA HERNANDEZ 05/17/18 Promethazine HCl/Codeine (Prometh-Codein 6.25-10 mg/5 ml) 5 Ml Syrup, 5 ML PO TID PRN for COUGH, #120 ML Prov:IGOR LÓPEZ MD 08/23/17 Ibuprofen* (Ibuprofen*) 600 Mg Tablet, 600 MG PO Q8 for 5 Days, #15 TAB Prov:IGOR LÓPEZ MD 08/23/17 Oseltamivir Phosphate* (Tamiflu*) 75 Mg Capsule, 75 MG PO BID for 5 Days, CAP Prov:IGOR LÓPEZ MD 08/23/17 Allergies Allergies: Coded Allergies: No Known Allergy (Unverified , 08/22/18) PMhx/Soc Medical and Surgical Hx: pt denies Medical Hx History of Surgery: Yes ( X 3) Anesthesia Reaction: No Hx Neurological Disorder: No Hx Respiratory Disorders: No Hx Cardiac Disorders: No Hx Psychiatric Problems: No Hx Miscellaneous Medical Probl: Yes (gestational diabetes) Hx Alcohol Use: Yes (social) Hx Substance Use: No Hx Tobacco Use: No FmHx Family History: diabetes Physical Exam Vitals Vital Signs Date Temp Pulse Resp B/P (MAP) Pulse Ox O2 O2 Flow FiO2 Time Delivery Rate 12/23/18 97.8 77 18 124/74 97 05:52 (91) Physical Exam Const: No acute distress Head: Atraumatic Eyes: Normal Conjunctiva ENT: Normal External Ears, Nose and Mouth. Neck: Full range of motion. No meningismus. Resp: Clear to auscultation bilaterally Cardio: Regular rate and rhythm, no murmurs Abd: Soft, non tender, non distended. Normal bowel sounds Skin: No petechiae or rashes. 6 cm wide by 4 cm long area of induration to the right upper flank. Visible packing in place, with minor bleeding. No warmth or fluctuance. Back: No midline or flank tenderness Ext: No cyanosis, or edema Neur: Awake and alert Psych: Normal Mood and Affect Procedures/MDM This is an otherwise healthy 32-year-old female who presents for reevaluation of abscess. Packing removed, and abscess irrigated. No visible purulent discharge removed with packing, and no discharge able to be expressed with manipulation. At this time repacking not indicated due to resolution and purulent discharge. Patient advised to continue with Bactrim and Keflex as previously prescribed. Counseled regarding wound care precautions. Advised to return to the ED if pain, swelling, or purulent discharge reappear. Patient stable for discharge at this time. Patient agreed and expressed verbal understanding to treatment plan. All questions addressed and answered. Departure Diagnosis: Primary Impression: Encounter for wound re-check Additional Impression: Abscess Condition: Stable Patient Instructions: Wound Care, Abscess, Incision And Drainage EDMOND JOYCE PA-C December 23, 2018 07:12
== END 2018-12-23 06:56 | disposition home or self-care (01) ==
LOC: FTE 05:50
DX: L02.211 Cutaneous abscess of abdominal wall (principal)
CPT/HCPCS: 99281